=== PATIENT | female | born 1980 | race Caucasian/White ===

== ENCOUNTER → 2021-08-17 | Outpatient (CLI) | payer OTHER | LOC: EXRD 13:48 | DX: M25.551 Pain in right hip (principal); M54.9 Dorsalgia, unspecified; G89.29 Other chronic pain; L40.50 Arthropathic psoriasis, unspecified; M85.60 Other cyst of bone, unspecified site; M16.11 Unilateral primary osteoarthritis, right hip | CPT/HCPCS: 72202; 73502 ==